=== PATIENT | female | born 1930 | race Caucasian/White ===

== ENCOUNTER → 2018-07-10 | Outpatient (CLI) | payer MEDICARE, OTHER | END | disposition home or self-care (01) | LOC: LAB 19:54 → LAB SHORT 19:54 | DX: H10.11 Acute atopic conjunctivitis, right eye (principal) | CPT/HCPCS: 87070; 87205 ==

== ENCOUNTER → 2020-04-02 | Outpatient (CLI) | payer MEDICARE, OTHER ==
[~2020-04-02] MED LIST: ASPI81CH PO; HUMULIN R500 UNIT/2 SC
[2020-04-03 15:10] LABS: ADENOVIRUS F 40/41 Not Detected (Not Detected); ASTROVIRUS Not Detected (Not Detected); C DIFFICILE TOXIN A/B Not Detected (Not Detected); CRYPTOSPORIDIUM Not Detected (Not Detected); CYCLOSPORA CAYETANENSIS Not Detected (Not Detected); ENTAMOEBA HISTOLYTICA Not Detected (Not Detected); ENTEROAGGREGATIVE E COLI Not Detected (Not Detected); ENTEROPATHOGENIC E COLI Not Detected (Not Detected); ENTEROTOXIGENIC E COLI Not Detected (Not Detected); GIARDIA LAMBLIA Not Detected (Not Detected); NOROVIRUS GI/GII Not Detected (Not Detected); PLESIOMONAS SHIGELLOIDES Not Detected (Not Detected); ROTAVIRUS A Not Detected (Not Detected); SALMONELLA Not Detected (Not Detected); SAPOVIRUS Not Detected (Not Detected); SHIGA-TOXIN-PRODUCING E COLI Not Detected (Not Detected); SHIGELLA/ENTEROINVASIVE E COLI Not Detected (Not Detected); VIBRIO Not Detected (Not Detected); VIBRIO CHOLERAE Not Detected (Not Detected); YERSINIA ENTEROCOLITICA Not Detected (Not Detected)
== END | disposition home or self-care (01) ==
LOC: LAB SHORT 17:32 → LAB 17:32
PROVIDERS: Emergency Medicine
DX: R19.7 Diarrhea, unspecified (principal); C34.91 Malignant neoplasm of unspecified part of right bronchus or lung
CPT/HCPCS: 0097U

== ENCOUNTER 2020-05-06 11:26 | Observation (INO) | payer MEDICARE, OTHER ==
[~2020-05-06] VITALS: Ht 157.5 cm; Wt 46.8 kg
[2020-05-06 13:58] LABS: Alanine Aminotransfer (ALT/SGP 24 U/L (12-78); Albumin, Blood 3.1 g/dL (3.4-5.0); Albumin/Globulin Ratio 0.7 (0.8-1.8); Alk Phos 94 U/L (50-136); Anion Gap 3 mmol/L (6-16); Aspartate Aminotrans (AST/SGOT 21 U/L (12-37); Bilirubin, Total 1.5 mg/dL (0.1-1.0); Blood Urea Nitrogen 14 mg/dL (8-24); Bun/Creatinine Ratio 28.2 (12.0-20.0); CO2, Blood 30 mmol/L (21-32); Calcium, Blood 9.6 mg/dL (8.5-10.1); Chloride, Blood 106 mmol/L (98-108); Globulin, Blood 4.2 g/dL (2.2-4.0); Glomerular Filtration Rate >60 (60-); Glucose, Blood 163 mg/dL (70-99); Potassium, Blood 4.3 mmol/L (3.5-5.5); Sodium, Blood 139 mmol/L (136-145); Total Protein, Blood 7.3 g/dL (6.4-8.2)
--- NOTE | 2020-05-06 14:46 | NUR ---
URINE COLLECTED AND SENT TO LAB.
--- NOTE | 2020-05-06 14:46 | NUR ---
REQUESTED PERMISSION TO CARE FOR PATIENT. PATIENT AGREES.
[2020-05-06 14:47] LABS: Source, Urine Catheter
[2020-05-06 14:53] LABS: Appearance, Urine Clear (Clear); Bilirubin, Urine Neg (Neg); Blood, Urine 2+ (Neg); Color, Urine Yellow (P-Yellow); Glucose Qualitative, Urine Neg (Neg); Ketones, Urine 1+ (Neg); Leukocyte Esterase, Urine Neg (Neg); Nitrite, Urine Neg (Neg); Protein, Urine Neg (Neg); Urobilinogen, Urine NORM (Normal)
[2020-05-06 15:05] LABS: Bacteria Few /hpf; Squamous Epithelial Cells Few /hpf (Few); White Blood Cells, Urine 0-2 /hpf (0-5)
[2020-05-06 15:13] LABS: BASOPHILS ABSOLUTE AUTO 0.03 K/mm3 (0.00-0.23); BASOPHILS PERCENT AUTO 0 % (0-2); EOSINOPHILS ABSOLUTE AUTO 0.07 K/mm3 (0.00-0.68); EOSINOPHILS PERCENT AUTO 1 % (0-6); Hematocrit 42.8 % (33.0-51.0); Hemoglobin 14.3 g/dL (11.5-16.0); IMMATURE GRAN ABSOLUTE AUTO 0.02 K/mm3 (0.00-0.10); IMMATURE GRAN PERCENT AUTO 0 % (0-1); LYMPHOCYTES ABSOLUTE AUTO 0.78 K/mm3 (0.84-5.20); LYMPHOCYTES PERCENT AUTO 9 % (21-46); MONOCYTES ABSOLUTE AUTO 0.38 K/mm3 (0.16-1.47); MONOCYTES PERCENT AUTO 5 % (4-13); Mean Corpuscular HGB 32.1 pg (26.0-34.0); Mean Corpuscular HGB Conc 33.4 g/dL (31.5-36.5); Mean Corpuscular Volume 96 fL (80-100); Mean Platelet Volume 9.6 fL (9.1-12.4); NEUTROPHILS ABSOLUTE AUTO 7.06 K/mm3 (1.96-9.15); NEUTROPHILS PERCENT AUTO 85 % (41-73); Platelet Count 222 K/mm3 (150-400); RDW Coefficient Variation 12.6 % (11.7-14.2); RDW Standard Deviation 44.9 fL (35.1-46.3); Red Blood Cell Count 4.45 M/mm3 (3.80-5.20); White Blood Cell Count 8.34 K/mm3 (4.00-11.30)
[2020-05-06] MEDS ORDERED: HUMULIN R500 UNIT/2 SC (16:03)
--- NOTE | 2020-05-06 18:26 | NUR ---
PT ARRIVED TO THE UNIT VIA GURNEY. PT IS NPO. PT ORIENTED TO THE ROOM. HER BED IS IN THE LOW POSITION AND CALL LIGHT IS WITHIN REACH.
[2020-05-06] MEDS ORDERED: ASPI81CH PO (19:55)
--- NOTE | 2020-05-07 04:16 | NUR ---
SUMMARY: PT ORIENTED TO SELF AND FAMILY BUT IS OCCASIONALLY FORGETFULL AND IMPULSIVE OOB. SHE AWAKENS DISORIENTED AND SETS BED ALARM OFF BUT SITS AT EOB UNTIL STAFF ENTER ROOM. PT SEEMS TO UNDERSTAND WHEN SPOKEN TO AND ATTEMPTS TO ANSWER Q'S W/GARBLED SPEECH. SHE MOSTLY ANSWERS YES/NO Q'S BUT SOME ADDITIONAL WORDS AND BRIEF PHRASES WERE COMPREHENSIBLE. PT ATTEMPTS TO FOLLOW COMMANDS BUT DOESN'T ALWAYS SEEM ABLE TO PERFORM INSTRUCTIONS, INSTEAD AGREEING AND NODDING HEAD TO REQUESTS. SHE'S APPEARS TO HAVE EQUAL STRENGTH TO BLE'S W/UNSTEADY GAIT BUT WASN'T OOB THIS SHIFT. DAUGHTER REPORTS SHE USES FWW AT BASELINE. WAITER/WAITRESS COCKTAIL LOUNGE STRENGTH WAS UNEQUAL W/R.HAND STRONGER THAN L.HAND. SHE LIFTS ARMS AND LEGS EQUALLY FROM BED AND REPOSITIONS SELF W/O DIFFICULTY. TWITCHING OF PT'S CHEEK MUSCLES IS INTERMITTENT BUT SHE IS AWAKE, RESPONSIVE AND VERBAL WHEN THIS OCCURS. NO S/S SEIZURE ACTIVITY OBSERVED. NEURO OBS STABLE W/O CHANGES. SHE REMAINS NPO PENDING SPEECH EVAL, MOUTH CARE PROVIDED PRN. Q6H CBG'S STABLE (170'S). PENA IS PATENT/DRAINING AND NS COMMENCED AT 75 ML/HR PER EMAR. DAUGHTER FROM [place] LIVES W/HER AND ASSISTS W/CARE. NO ACUTE CHANGES, VSS/AFEBRILE. WCTM AND REPORT TO DAY RN.
[2020-05-07 04:48] LABS: BASOPHILS ABSOLUTE AUTO 0.04 K/mm3 (0.00-0.23); BASOPHILS PERCENT AUTO 0 % (0-2); EOSINOPHILS ABSOLUTE AUTO 0.02 K/mm3 (0.00-0.68); EOSINOPHILS PERCENT AUTO 0 % (0-6); Hematocrit 39.2 % (33.0-51.0); Hemoglobin 13.3 g/dL (11.5-16.0); IMMATURE GRAN ABSOLUTE AUTO 0.03 K/mm3 (0.00-0.10); IMMATURE GRAN PERCENT AUTO 0 % (0-1); LYMPHOCYTES ABSOLUTE AUTO 0.71 K/mm3 (0.84-5.20); LYMPHOCYTES PERCENT AUTO 6 % (21-46); MONOCYTES ABSOLUTE AUTO 0.78 K/mm3 (0.16-1.47); MONOCYTES PERCENT AUTO 7 % (4-13); Mean Corpuscular HGB 32.4 pg (26.0-34.0); Mean Corpuscular HGB Conc 33.9 g/dL (31.5-36.5); Mean Corpuscular Volume 95 fL (80-100); NEUTROPHILS ABSOLUTE AUTO 10.23 K/mm3 (1.96-9.15); NEUTROPHILS PERCENT AUTO 87 % (41-73); Platelet Count 204 K/mm3 (150-400); RDW Standard Deviation 45.2 fL (35.1-46.3); Red Blood Cell Count 4.11 M/mm3 (3.80-5.20); White Blood Cell Count 11.81 K/mm3 (4.00-11.30)
[2020-05-07 05:14] LABS: Anion Gap 7 mmol/L (6-16); Blood Urea Nitrogen 14 mg/dL (8-24); CO2, Blood 29 mmol/L (21-32); Calcium, Blood 9.1 mg/dL (8.5-10.1); Chloride, Blood 107 mmol/L (98-108); Creatinine, Blood 0.48 mg/dL (0.40-1.00); Glomerular Filtration Rate >60 (60-); Glucose, Blood 184 mg/dL (70-99); Sodium, Blood 143 mmol/L (136-145)
--- NOTE | 2020-05-07 15:30 | NUR ---
Initial Pal Care visit/start of comfort care - Joint visit made with [facility] Neris Monroe after case conf with , RN, and Neris and review of EMR earlier. Dr and family opted for EOL comfort care and set up of hosice services at home after pt's CVA and resulting dysphagia that would require artificial nutrition custodial to meet pt's needs. Pt is very frail, thin with BMI of 17 at baseline. Susan reports pt has not eaten well since her first chemo tx a long time ago, for stage IV lung CA. Neris and I met with daughter, June in pt's room on medical floor. Pt slept, turned to her left side without any bed mobility the entire time we were in the room speaking with June. She appears cachectic and frail. I did not note any nonverbal indicators of pain, anxiety, distress, dyspnea or agitation at this time. I educated susan on nonverbal indicators of distress or increased pain/s/s if noted, especially if pt is normally stoic and doesn't self report. We had an extensive conversation re: home care, hospice, comfort measures, DME needed, Pt's PLOF and concerns for safety with mobility and transfers now, s/s management, dehydration, available hospice agencies and timeframes for anticipated d/c if pt stable for d/c home. Susan has been living in the area with her mom and caring for her since Fall. She has two brothers locally who will be helping with home care. Susan appears overwhelmed and exhibiting manager care management fatigue. She had left the area to help another family member & then called back due to the change in her mom's condition with CVA. June is asking good, practical quesitons re: safety with mobility and transfers, s/s management resources, etc. She does not have a preference of agency but would like the one of three available that can be there the earliest. We determined that pt will need hospital bed and over bed table, BSC and may prefer to maintain the arriaga catheter currently in place. I would recommend that in additon to hospice director, DERRICK BOAT RUNNER, COTTON FARMWORK[employer] family needs caregiver training and home safety eval/recommendations from OT/PT initially (not for rehab purposes but safety with mobility and transfers). Plan formulated with susan for 24 hours of comfort care minimum to be sure medications planned for home working well for pt here and to allow for set up of Hospice and DME at home. Medications used for comfort and currently ordered explained to pt's susan also. Plan for daily f/u for s/s management and support to pt/susan, assist with dc planning as needed. Neris will be contacting hospice agency and they will contact susan directly for set up of equipment and visits. Neris will arrange gurney transport when DME and services in place as long as pt remains stable for transport home. Pt's RN updated on all of the above after our visit.
--- NOTE | 2020-05-07 17:37 | NUR ---
SUMMARY PT SITTING UP IN BED, DAUGHTER AT THE BEDSIDE, PT MADE COMFORT CARE TODAY, PT HAS BEEN PLEASANTLY CONFUSED, SLEPT OFF AND ON T/O THE DAY, DOES NOT USE THE CALL SYSTEM, BED ALARM ON FOR SAFETY, PT'S SPEECH REMAINS GARBLED, NO ACUTE CHANGES, WILL CONT TO MONITOR
--- NOTE | 2020-05-07 17:46 | NUR ---
ADMIT: 05/06/20 DISCHARGE: DX: Dysphasia, possible CVA CC: JOSEFINA CALL: RESIDENCE: Home () CAREGIVER: Garcia Thompson, Child, June Erickson, child, Vasu Thompson, Child, DX: Adenocarcinoma of the lung, stage IV, DM-type 2, HTN, SVT DME: DM supplies CCM: none HOME Hospice- [facility] hospice ordered for start. Notified Ludres at [facility] 05/07/20 SUMMARY: Admit 05/06/20 05/07/20 Met with daughter June. Discussed Hospice services, says she has family members to help with care at home. [facility] can start , Lurdes at [facility] notified of referral. Lurdes will contact June. Needs following equipment: Hospital Bed, overbed table, commode, wheelchair for indoor mobility. Going home with Lay catheter. Called and left a message with June that [facility] will contact her. Will get Hospice paperwork and pad prescriptions signed on Wednesday. 1: CVA (cerebral vascular accident) A/P: Very likely CVA given her persistent facial droop, dysphasia and confusion. Could persue MRI but I do not think she can sit still for it and it would not business change manager at this point. She has no signs of mets or infection on imaging or blood work. Her CT scan of chest shows progression of her stage IV metastatic lung cancer. -Speech eval, NPO until then with gentle hydration with IV fluids. -Palliative care consult, spoke with team about patient and initiated a palliative care discussion with son at bedside who will speak with his two siblings. 2: Stage IV adenocarcinoma of lung
--- NOTE | 2020-05-08 05:12 | NUR ---
SUMMARY: PT REMAINS ON COMFORT MEASURES. SHE'S DENIED ALL COMPLAINTS AND HAS BEEN ASYMPTOMATIC OF ANY DISTRESS. PENA IS PATENT AND DRAINING AND SHE WAS ASSISTED TO BSC PER PT REPORT OF NEEDING TO HAVE A BM BUT ONLY PASSED FLATUS. NEUROS OBS STABLE AND STRENGTH EQUAL BILATERALLY. SHE'S MOSTLY ABLE TO SPECIFY NEEDS WITH YES/NO ANSWERS AND SOME BRIEF PHRASES BUT IS CONFUSED OTHER THAN TO SELF/FAMILY. BED ALARM ON FOR FORGETFULLNESS AND OCCASIONAL IMPULSIVITY. SHE'S PLEASANT AND COOPERATIVE BUT HAS SOME DIFFICULTY FOLLOWING INSTRUCTIONS. MOUTH CARE PROVIDED PRN AND PT REPOSITIONS SELF IN BED. NO ACUTE CHANGES. WCTM AND REPORT TO DAY RN.
--- NOTE | 2020-05-08 09:35 | NUR ---
Therapeutic visit with Trina this morning. She has expressive aphasia, but appears to be comfortable. We talked about her dog (she has a picture of her dog on her beside table.) She enjoyed telling me about her dog despite this director underwriter sales not being able to understand her speech. She denied pain. Plan is for her to go home tomorrow with family with [facility].
--- NOTE | 2020-05-08 10:38 | NUR ---
Second visit with Trina this time with her dtr, June at bedside. June brought Trina in some buttermilk and Trina loves it. She lit up with a big smile similar to her reaction when we talked about her dog earlier. June reports her mother loves ice cream and yogurt. Sent meal request for these items to be sent up with meal trays. June states her concern having her mom fall. They have a walker at home. Trina got up to the bathroom with staff assist to have a BM. Gait belt placed on Trina and gait belt training given to June. Discussed options for techniques to reposition Trina in her hospital bed when she gets home. June thanked this typewriter ribbon winder for her time. Trina is smiling a lot during her daughter's visit this morning.
--- NOTE | 2020-05-08 17:13 | NUR ---
Spiritual care note: Trina had just had several visitors. She was sleeping and did not respond to voice or touch. No family present at time of visit. Prayer provided and note left. Pt appears comfortable/peaceful. I will remain available.
--- NOTE | 2020-05-08 17:40 | NUR ---
SUMMARY PT SITTING UP IN BED, FAMILY AT THE BEDSIDE, PT ON COMFORT CARE, PT IS PLEASANTLY CONFUSED, STILL WITH EXPRESSIVE APHASIA, DOES NOT USE THE CALL LIGHT, IMPULSIVE, BED ALARM ON FOR SAFETY, NO S/S PAIN OR DISTRESS T/O THE DAY, PLAN FOR DC HOME WITH HOSPICE TOMORROW, WILL CONT TO MONITOR
--- NOTE | 2020-05-09 03:48 | NUR ---
TELEMETRY RN SUMMARY A/O TO SELF ONLY. DIFFICULTY WITH FOLLOWING COMMANDS, GARBLED SPEECH. ABLE TO ANSWER YES/NO QUESTIONS. DENIES PAIN OR SOB. APPEARED TO SLEEP T/O THE NIGHT. Q2 REPOSITIONING AND ORAL CARE PRN. BED IN LOWEST POSITION, ALARM ON, CALL LIGHT WITHIN REACH. WILL CONTINUE TO MONITOR AND REPORT TO ONCOMING RN.
--- NOTE | 2020-05-09 09:45 | NUR ---
Comfort care visit - Pt lying in bed awake. She appears sl anxious and glad for a visit. She is going home with Family care and [facility] hospice services today at 1030 with transport arranged by Clinical Coordinator.
--- NOTE | 2020-05-09 11:15 | NUR ---
SUMMARY: Admit 05/06/20 05/09/20 Discharge home with daughter June and Sons to care for her on Hospice services with Erica to start today. Equipment already in the home Transport 10:30 today. June is expecting chai call. no EFM appointment nessessary. cp
--- NOTE | 2020-05-09 11:20 | NUR ---
PT AOX1 AND TRANSPORTED TO HOME TODAY WITH HOSPICE AT 1030. DAUGHTER WAS HERE FOR TRANSPORT. PT WAS SEEN BY [facility] AND EVERYTHING WAS MADE READY PRIOR TO TRANSPORT. PT TREATED FOR GENERLIZED PAIN PER EMAR. PRIOR TO LEAVING. ALL BELONGINGS WERE COLLECTED AND EDUCATIONAL MATERIAL GIVEN TO DAUGHTER.
== END 2020-05-09 10:40 | disposition hospice, home (50) ==
LOC: ER 11:26 → MEDS 17:50
PROVIDERS: Emergency Medicine; ADMIT Student in an Organized Health Care Education/Training Program
DX: I63.89 Other cerebral infarction (principal); R13.10 Dysphagia, unspecified; R47.01 Aphasia; I10 Essential (primary) hypertension; E11.9 Type 2 diabetes mellitus without complications; C34.90 Malignant neoplasm of unspecified part of unspecified bronchus or lung; C79.9 Secondary malignant neoplasm of unspecified site; E78.5 Hyperlipidemia, unspecified; I73.00 Raynaud's syndrome without gangrene; R64 Cachexia; R63.6 Underweight; Z51.5 Encounter for palliative care; Z66 Do not resuscitate; Z79.4 Long term (current) use of insulin; Z68.1 Body mass index [BMI] 19.9 or less, adult
CPT/HCPCS: 36415; 51702; 70450; 80048; 80053; 81001; 82947; 84484; 85025; 92610; 93005; 93010; 94762; 96365-59; 96366-59; 96372; 96375-59; 99285-25; A9270; G0378; J1650; J1953; J2550; J7030